=== PATIENT | male | born 1965 | race Caucasian/White ===

== ENCOUNTER 2018-12-11 12:18 | Inpatient (IN) | payer MEDICARE, OTHER ==
[2018-12-11 13:04] LABS: ABNORMAL IP MESSAGE 1; HEMATOCRIT 24.9 % (42.0-52.0); HEMOGLOBIN 8.2 g/dl (14.0-18.0); MEAN CORPUSCULAR HEMOGLOBIN 30.9 pg (29.0-33.0); MEAN CORPUSCULAR HGB CONC 32.9 g/dl (32.0-37.0); MEAN PLATELET VOLUME 9.8 fl (7.4-10.4); PLATELET COUNT 206 10^3/UL (140-415); POSITIVE DIFF @See below; RED BLOOD COUNT 2.65 10^6/ul (4.70-6.10); RED CELL DISTRIBUTION WIDTH 19.3 % (11.5-14.5)
[2018-12-11 13:04] LABS: WHITE BLOOD COUNT 1.7 10^3/ul (4.8-10.8)
[2018-12-11] MEDS: OXYCODONE/ACETAMINOPHEN (5/325) TAB PO (13:04)
[2018-12-11] MEDS: IBUPROFEN 600 MG TAB PO (13:04)
[2018-12-11] MEDS: ONDANSETRON 4 MG INJ IV (13:04)
[2018-12-11 13:05] LABS: ADD MAN DIFF? YES
[2018-12-11] MEDS: SODIUM CHLORIDE 0.9% 1L BAG IV* (13:05)
[2018-12-11] MEDS: CEFTRIAXONE 1 GM/50 ML (PMX) 50 ML IVPB (13:05)
[2018-12-11 13:20] LABS: ALANINE AMINOTRANSFERASE 18 IU/L (13-69); ALBUMIN 1.4 g/dl (3.3-4.9); ALBUMIN/GLOBULIN RATIO 0.51; ALKALINE PHOSPHATASE 83 IU/L (42-121); ANION GAP 15 (5-13); ASPARTATE AMINO TRANSFERASE 33 IU/L (15-46); BILIRUBIN,INDIRECT 0.5 mg/dl (0-1.1); BILIRUBIN,TOTAL 0.5 mg/dl (0.2-1.3); BLOOD UREA NITROGEN 9 mg/dl (7-20); CALCIUM 7.2 mg/dl (8.4-10.2); CARBON DIOXIDE 18 mmol/L (21-31); CHLORIDE 98 mmol/L (97-110); CREATININE 1.46 mg/dl (0.61-1.24); Estimated GFR 50 mL/min (>60); GLUCOSE 79 mg/dl (70-220); POTASSIUM 4.3 mmol/L (3.5-5.1); SODIUM 131 mmol/L (135-144); TOTAL PROTEIN 4.1 g/dl (6.1-8.1)
[2018-12-11 13:23] LABS: PROTIME 28.7 Sec (11.9-14.9); PT RATIO 2.2
[2018-12-11 13:24] LABS: PARTIAL THROMBOPLASTIN TIME 49.2 Sec (23.0-35.0)
[2018-12-11 13:32] LABS: LIPASE < 10 U/L (23-300); TROPONIN-I < 0.012 ng/ml (0.000-0.120)
[2018-12-11 13:42] LABS: ANISOCYTOSIS 2+ (0-0); BAND NEUTROPHILS #M 0.8 10^3/ul (0.0-0.6); BAND NEUTROPHILS % (M) 48 % (0-4); BURR CELLS 2+ (0-0); ERYTHROBLAST% (NRBC) (M) 1 % (0-0); GIANT THROMBO% (M) 5 % (0-0); HYPOCHROMASIA 1+ (0-0); LYMPHOCYTES % (M) 4 % (15-51); METAMYELOCYTES #M 0.2 10^3/ul (0.0-0.0); METAMYELOCYTES %M 12 % (0-0); MONOCYTES % (M) 3 % (0-11); MYELOCYTES #M 0.1 10^3/ul (0.0-0.0); MYELOCYTES % (M) 7 % (0-0); PLATELET ESTIMATE NORMAL; POIKILOCYTOSIS 2+ (0-0); POLYCHROMASIA 1+ (0-0); RBC MORPHOLOGY COMMENT @See below; REACTIVE LYMPHOCYTES% (M) 2 % (0-0); SEG NEUT #M 0.4 10^3/ul (1.6-7.5); SEGMENTED NEUTROPHILS (M) % 25 % (39-77); SMUDGE%M 9 % (0-0); TARGET CELLS 1+ (0-0); WBC MORPHOLOGY COMMENT @See below
[2018-12-11] MEDS: METOCLOPRAMIDE 10 MG INJ IV (14:01)
[2018-12-11] MEDS: NORepinephrine 8MG/250 ML (PMX 250 ML IV (14:32)
[2018-12-11] MEDS: SOD CHLORIDE 0.9% 1,000 ML IV ×2 (14:57→18:41)
[2018-12-11 15:27] LABS: ADD UMIC YES; UR ASCORBIC ACID NEGATIVE (NEGATIVE); UR BACTERIA FEW /HPF (NONE SEEN); UR BILIRUBIN (Dip) 1+ mg/dL (NEGATIVE); UR BLOOD (Dip) NEGATIVE (NEGATIVE); UR CLARITY CLOUDY (CLEAR); UR COLOR AMBER (YELLOW); UR GLUCOSE (Dip) NEGATIVE (NEGATIVE); UR HYALINE CAST FEW /HPF (NONE SEEN); UR KETONES (Dip) TRACE mg/dL (NEGATIVE); UR LEUKOCYTE ESTERASE (Dip) NEGATIVE Leu/ul (NEGATIVE); UR MUCUS FEW /HPF (NONE SEEN); UR NITRITE (Dip) NEGATIVE (NEGATIVE); UR RBC 5 /HPF (0-5); UR SPECIFIC GRAVITY (Dip) 1.019 (1.003-1.030); UR TOTAL PROTEIN (Dip) 2+ mg/dl (NEGATIVE); UR UROBILINOGEN (Dip) 2+ mg/dL (NEGATIVE); UR WBC 5 /HPF (0-5)
[2018-12-11] MEDS ORDERED: DOCUSATE SODIUM 100 MG CAP PO (16:00)
[2018-12-11] MEDS ORDERED: MAGNESIUM HYDROXIDE 30ML CUP PO (16:00)
[2018-12-11] MEDS ORDERED: ACETAMINOPHEN 325 MG TAB PO (16:00)
[2018-12-11] MEDS ORDERED: NACL 0.9% 3 ML SYG IV (16:00)
[2018-12-11] MEDS ORDERED: LORAZEPAM 2 MG INJ IV (16:00)
[2018-12-11] MEDS ORDERED: NITROGLYCERIN (SL) 0.4 MG TAB SL (16:00)
[2018-12-11] MEDS ORDERED: hydrALAzine 20 MG INJ IV (16:00)
[2018-12-11] MEDS ORDERED: VANCOMYCIN IV PER PHARMACY XX (16:00)
[2018-12-11] MEDS ORDERED: HYDROCODONE/APAP (5/325) TAB PO (16:00)
[2018-12-11 16:30] LABS: PLATELET COUNT 165 10^3/UL (140-415)
[2018-12-11 16:45] LABS: HEMOGLOBIN A1C 5.2 % (0-5.9)
[2018-12-11 16:52] LABS: INR 3.66; PROTIME 36.4 Sec (11.9-14.9); PT RATIO 2.8
[2018-12-11 16:54] LABS: PARTIAL THROMBOPLASTIN TIME 63.9 Sec (23.0-35.0); THROMBIN TIME 20.6 SEC (13.8-19.1)
[2018-12-11 16:59] LABS: D-DIMER 2498.97 ng/ml (<460)
[2018-12-11 17:04] LABS: FREE T4 (FREE THYROXINE) 1.32 ng/dl (0.64-1.79)
[2018-12-11 17:11] LABS: LACTIC ACID 11.4 mmol/L (0.5-2.0)
[2018-12-11] MEDS: ALBUMIN HUMAN 25% 100 ML IV (17:23)
[2018-12-11] MEDS: NORepinephrine 32 MG in DEXTROSE 5% 218 ML IV (17:24)
[2018-12-11 18:18] LABS: FIBRIN SPLIT PRODUCT >10 and <40 ug/ml (<10)
[2018-12-11] MEDS: PHENYLephrine 80 MG in DEXTROSE 5% 242 ML IV (19:29)
[2018-12-11] MEDS: SOD CHLORIDE 0.9% 250 ML IV* (19:30)
[2018-12-11 20:14] LABS: SODIUM,URINE RANDOM < 13 mmol/L (30-90)
[2018-12-11 20:19] LABS: CREATININE,URINE RANDOM 461.11 mg/dl (20-370)
[2018-12-11] MEDS: FAMOTIDINE 20 MG INJ IV (21:43)
[2018-12-11] MEDS: VANCOMYCIN HCL 1.5 GM in SOD CHLORIDE 0.9% 250 ML IVPB (21:58)
[2018-12-11] MEDS: morphine 4 MG/ML VIAL IV (22:08)
[2018-12-11] MEDS: SOD CHLORIDE 0.9% 250 ML IV (22:09)
[2018-12-11 22:24] LABS: LACTIC ACID 12.3 mmol/L (0.5-2.0)
[2018-12-11] MEDS: CEFEPIME 2GM/50 ML (PMX) 50 ML IVPB (23:25)
[2018-12-12 00:08] LABS: LACTIC ACID 13.4 mmol/L (0.5-2.0)
[2018-12-12] MEDS: ALBUMIN HUMAN 25% 100 ML IV ×3 (00:09→12:18)
[2018-12-12] MEDS: PHENYLephrine 80 MG in DEXTROSE 5% 242 ML IV ×5 (02:30→21:51)
[2018-12-12] MEDS: SOD CHLORIDE 0.9% 250 ML IV (04:17)
[2018-12-12] MEDS: SOD CHLORIDE 0.9% 1,000 ML IV (05:25)
[2018-12-12 05:33] LABS: WHITE BLOOD COUNT 2.3 10^3/ul (4.8-10.8)
[2018-12-12 05:33] LABS: RED BLOOD COUNT 2.11 10^6/ul (4.70-6.10)
[2018-12-12 05:34] LABS: ABNORMAL IP MESSAGE 1; HEMATOCRIT 20.4 % (42.0-52.0); MEAN CORPUSCULAR HEMOGLOBIN 31.3 pg (29.0-33.0); MEAN CORPUSCULAR HGB CONC 32.4 g/dl (32.0-37.0); MEAN CORPUSCULAR VOLUME 96.7 fl (82.0-101.0); MEAN PLATELET VOLUME 10.5 fl (7.4-10.4); PLATELET COUNT 117 10^3/UL (140-415); POSITIVE DIFF @See below; RED CELL DISTRIBUTION WIDTH 20.3 % (11.5-14.5)
[2018-12-12 05:48] LABS: HEMOGLOBIN A1C 5.1 % (0-5.9)
[2018-12-12 05:57] LABS: INR 2.45; PROTIME 26.6 Sec (11.9-14.9); PT RATIO 2.1
[2018-12-12 06:04] LABS: ADD MAN DIFF? YES; HEMOGLOBIN 6.6 g/dl (14.0-18.0)
[2018-12-12 06:08] LABS: HDL CHOLESTEROL 10 mg/dl (28-71); TRIGLYCERIDES 80 mg/dl (0-149)
[2018-12-12 06:13] LABS: ALANINE AMINOTRANSFERASE 40 IU/L (13-69); ALKALINE PHOSPHATASE 52 IU/L (42-121); ANION GAP 15 (5-13); ASPARTATE AMINO TRANSFERASE 94 IU/L (15-46); BILIRUBIN,INDIRECT 0.5 mg/dl (0-1.1); BILIRUBIN,TOTAL 1.1 mg/dl (0.2-1.3); BLOOD UREA NITROGEN 8 mg/dl (7-20); CALCIUM 6.7 mg/dl (8.4-10.2); CARBON DIOXIDE 13 mmol/L (21-31); CHLORIDE 109 mmol/L (97-110); Estimated GFR 35 mL/min (>60); POTASSIUM 3.8 mmol/L (3.5-5.1); SODIUM 137 mmol/L (135-144); TOTAL PROTEIN 4.2 g/dl (6.1-8.1)
[2018-12-12 06:57] LABS: CHOLESTEROL < 50 mg/dl (100-200)
[2018-12-12 07:04] LABS: GLUCOSE 29 mg/dl (70-220)
[2018-12-12 07:48] LABS: LACTIC ACID 13.3 mmol/L (0.5-2.0)
[2018-12-12 07:52] LABS: MAGNESIUM 1.6 mg/dl (1.7-2.5)
[2018-12-12 07:52] LABS: PHOSPHORUS 5.7 mg/dl (2.5-4.9)
[2018-12-12 07:57] LABS: ANISOCYTOSIS 3+ (0-0); BAND NEUTROPHILS #M 1.2 10^3/ul (0.0-0.6); BAND NEUTROPHILS % (M) 53 % (0-4); BASOPHILS % (M) 1 % (0-2); BURR CELLS 3+ (0-0); EOSINOPHILS % (M) 2 % (0-7); GIANT THROMBO% (M) 2 % (0-0); HYPOCHROMASIA 1+ (0-0); LYMPHOCYTES % (M) 3 % (15-51); METAMYELOCYTES #M 0.1 10^3/ul (0.0-0.0); METAMYELOCYTES %M 6 % (0-0); MONOCYTES % (M) 1 % (0-11); MYELOCYTES #M 0.2 10^3/ul (0.0-0.0); MYELOCYTES % (M) 9 % (0-0); PLATELET ESTIMATE DECREASED; POIKILOCYTOSIS 3+ (0-0); POLYCHROMASIA 3+ (0-0); SEG NEUT #M 0.6 10^3/ul (1.6-7.5); SEGMENTED NEUTROPHILS (M) % 25 % (39-77); SMUDGE%M 2 % (0-0); TARGET CELLS 1+ (0-0)
[2018-12-12] MEDS ORDERED: VANCOMYCIN 750 MG (PMX) 250 ML IVPB (08:00)
[2018-12-12] MEDS ORDERED: DEXTROSE 50% 50 ML SYRINGE (08:18)
[2018-12-12] MEDS: SODIUM BICARBONATE (IV ADD) 100 MEQ in DEXTROSE 5%-0.45% NACL 1,000 ML IV (08:34)
[2018-12-12 08:43] LABS: WHITE BLOOD COUNT 2.9 10^3/ul (4.8-10.8)
[2018-12-12 08:43] LABS: ABNORMAL IP MESSAGE 1; HEMATOCRIT 20.1 % (42.0-52.0); MEAN CORPUSCULAR HEMOGLOBIN 30.7 pg (29.0-33.0); MEAN CORPUSCULAR HGB CONC 30.8 g/dl (32.0-37.0); MEAN CORPUSCULAR VOLUME 99.5 fl (82.0-101.0); MEAN PLATELET VOLUME 10.6 fl (7.4-10.4); PLATELET COUNT 95 10^3/UL (140-415); POSITIVE DIFF @See below; RED BLOOD COUNT 2.02 10^6/ul (4.70-6.10); RED CELL DISTRIBUTION WIDTH 20.4 % (11.5-14.5)
[2018-12-12] MEDS: DEXTROSE 50% 50 ML SYRINGE IV ×3 (08:47→14:22)
[2018-12-12] MEDS: CEFEPIME 2GM/50 ML (PMX) 50 ML IVPB (08:47)
[2018-12-12] MEDS: FAMOTIDINE 20 MG INJ IV (08:47)
[2018-12-12 08:58] LABS: ADD MAN DIFF? YES; HEMOGLOBIN 6.2 g/dl (14.0-18.0)
[2018-12-12] MEDS: NORepinephrine 32 MG in DEXTROSE 5% 218 ML IV ×2 (09:09→23:27)
[2018-12-12] MEDS: ALBUTEROL/IPRATROPIUM (NEB) 3 ML AMP HHN (09:18)
[2018-12-12 09:19] LABS: GLUCOSE 32 mg/dl (70-220)
[2018-12-12 09:21] LABS: LACTIC ACID 13.1 mmol/L (0.5-2.0)
[2018-12-12] MEDS: ONDANSETRON 4 MG INJ IV (09:29)
[2018-12-12 09:39] LABS: ANISOCYTOSIS 3+ (0-0); BAND NEUTROPHILS #M 1.3 10^3/ul (0.0-0.6); BAND NEUTROPHILS % (M) 45 % (0-4); BURR CELLS 3+ (0-0); EOSINOPHILS % (M) 1 % (0-7); ERYTHROBLAST% (NRBC) (M) 2 % (0-0); GIANT THROMBO% (M) 2 % (0-0); HYPOCHROMASIA 1+ (0-0); LYMPHOCYTES #M 0.3 10^3/ul (0.8-2.9); LYMPHOCYTES % (M) 12 % (15-51); METAMYELOCYTES #M 0.2 10^3/ul (0.0-0.0); METAMYELOCYTES %M 7 % (0-0); MONOCYTE #M 0.4 10^3/ul (0.3-0.9); MONOCYTES % (M) 14 % (0-11); MYELOCYTES #M 0.2 10^3/ul (0.0-0.0); MYELOCYTES % (M) 9 % (0-0); OVALOCYTES 1+ (0-0); PLATELET ESTIMATE DECREASED; POIKILOCYTOSIS 3+ (0-0); POLYCHROMASIA 1+ (0-0); SEG NEUT #M 0.4 10^3/ul (1.6-7.5); SEGMENTED NEUTROPHILS (M) % 12 % (39-77); SMUDGE%M 9 % (0-0); TARGET CELLS 1+ (0-0)
[2018-12-12] MEDS ORDERED: FENTAnyl 50 MCG/ML VIAL (09:59)
[2018-12-12 10:14] LABS: IMMEDIATE SPIN CROSSMATCH 1
[2018-12-12] MEDS: VASOPRESSIN 60 UNIT in DEXTROSE 5% 57 ML IV (11:11)
[2018-12-12] MEDS: MIDAZOLAM (DRIP) 50 mg/50 mL 50 ML IV (11:21)
[2018-12-12] MEDS: SODIUM BICARBONATE (IV ADD) 150 MEQ in DEXTROSE 5% 1,000 ML IV ×2 (11:25→19:25)
[2018-12-12] MEDS: FENTAnyl (DRIP) 1000 mcg/100mL 100 ML IV (11:38)
[2018-12-12] MEDS ORDERED: ALBUMIN HUMAN 25% 100 ML (11:39)
[2018-12-12] MEDS: FENTAnyl 50 MCG/ML VIAL IV (11:43)
[2018-12-12 11:56] LABS: AADO2 Arterial 297.7 mmHg (7.0-24.0); Allen Test ACCEPTAB; Arterial Base Excess -18.6 mmol/L (-3.0-3); Arterial Blood Gas Oxygen Sat 98.4 mmHG (95.0-98.0); Arterial COHb 0.3 % (0.0-3.0); Arterial Fraction of Oxyhgb 97.9 % (93.0-99.0); Arterial HCO3 8.7 mmol/L (22.0-26.0); Arterial MetHb 0.2 % (0.0-1.5); Arterial pCO2 25.7 mmhg (35-45); MODE VENT - AC; Site Left Radial
[2018-12-12 12:01] LABS: LACTIC ACID 14.7 mmol/L (0.5-2.0)
[2018-12-12] MEDS: MEROPENEM 1 GM/50ML(PMX) 50 ML IVPB ×2 (12:16→20:52)
[2018-12-12 12:32] LABS: ALANINE AMINOTRANSFERASE 44 IU/L (13-69); ALBUMIN 2.6 g/dl (3.3-4.9); ALBUMIN/GLOBULIN RATIO 1.13; ALKALINE PHOSPHATASE 47 IU/L (42-121); ANION GAP 20 (5-13); ASPARTATE AMINO TRANSFERASE 110 IU/L (15-46); BILIRUBIN,INDIRECT 0.6 mg/dl (0-1.1); BILIRUBIN,TOTAL 1.3 mg/dl (0.2-1.3); BLOOD UREA NITROGEN 8 mg/dl (7-20); CALCIUM 6.7 mg/dl (8.4-10.2); CHLORIDE 107 mmol/L (97-110); SODIUM 137 mmol/L (135-144); TOTAL PROTEIN 4.9 g/dl (6.1-8.1)
[2018-12-12 12:39] LABS: Estimated GFR 37 mL/min (>60)
[2018-12-12 12:52] LABS: CARBON DIOXIDE 10 mmol/L (21-31)
[2018-12-12 12:53] LABS: CREATININE 1.89 mg/dl (0.61-1.24)
[2018-12-12 12:56] LABS: GLUCOSE 30 mg/dl (70-220)
[2018-12-12] MEDS: ASCORBIC ACID IVPB ×3 (13:02→23:27)
[2018-12-12] MEDS: DEXTROSE 5% IVPB ×3 (13:02→23:27)
[2018-12-12] MEDS: FILGRASTIM 480 MCG INJ IVPB (13:03)
[2018-12-12 13:41] LABS: HEMATOCRIT 20.1 % (42.0-52.0)
[2018-12-12 13:53] LABS: HEMOGLOBIN 6.2 g/dl (14.0-18.0)
[2018-12-12 14:17] LABS: IMMEDIATE SPIN CROSSMATCH 1 5
[2018-12-12] MEDS: SOD CHLORIDE 0.9% IV (14:18)
[2018-12-12] MEDS: EPINEPHRINE IV (14:18)
[2018-12-12] MEDS: NA BICARBONATE 8.4% 50 ML SYG IV (14:20)
[2018-12-12] MEDS: DEXTROSE 10% 1,000 ML IV (14:22)
[2018-12-12] MEDS: HYDROCORTISONE 100 MG INJ IV ×2 (14:46→21:45)
[2018-12-12] MEDS: SOD CHLORIDE 0.9% 250 ML IV* (14:46)
[2018-12-12] MEDS: THIAMINE 100 MG TAB NGT ×2 (17:30→20:47)
[2018-12-12 18:42] LABS: HEMATOCRIT 30.4 % (42.0-52.0); HEMOGLOBIN 9.3 g/dl (14.0-18.0)
[2018-12-12 21:19] LABS: IMMEDIATE SPIN CROSSMATCH 1
[2018-12-12] MEDS: DOPamine 800 MG in DEXTROSE 5% 230 ML IV (21:30)
[2018-12-12] MEDS: VANCOMYCIN 1 GM 250 ML IVPB (21:45)
[2018-12-13] MEDS: MIDAZOLAM (DRIP) 50 mg/50 mL 50 ML IV (00:39)
== END 2018-12-13 02:48 | disposition expired | DRG 871 ==
LOC: E/R 12:18 → ICU 14:14
PROVIDERS: Hospitalist
PROC: 02HV33Z Insertion of Infusion Device into Superior Vena Cava, Percutaneous Approach (ICD-10-PCS; 2018-12-11)
PROC: B546ZZA Ultrasonography of Right Subclavian Vein, Guidance (ICD-10-PCS; 2018-12-11)
PROC: 5A1935Z Respiratory Ventilation, Less than 24 Consecutive Hours (ICD-10-PCS; principal; 2018-12-12)
PROC: 0BH17EZ Insertion of Endotracheal Airway into Trachea, Via Natural or Artificial Opening (ICD-10-PCS; 2018-12-12)
PROC: 30233K1 Transfusion of Nonautologous Frozen Plasma into Peripheral Vein, Percutaneous Approach (ICD-10-PCS; 2018-12-12)
PROC: 30233N1 Transfusion of Nonautologous Red Blood Cells into Peripheral Vein, Percutaneous Approach (ICD-10-PCS; 2018-12-12)
PROC: 30233M1 Transfusion of Nonautologous Plasma Cryoprecipitate into Peripheral Vein, Percutaneous Approach (ICD-10-PCS; 2018-12-12)
PROC: 4A033R1 Measurement of Arterial Saturation, Peripheral, Percutaneous Approach (ICD-10-PCS; 2018-12-12)
DX: A41.51 Sepsis due to Escherichia coli [E. coli] (principal); R65.21 Severe sepsis with septic shock; E43 Unspecified severe protein-calorie malnutrition; D65 Disseminated intravascular coagulation [defibrination syndrome]; J96.01 Acute respiratory failure with hypoxia; J18.9 Pneumonia, unspecified organism; N17.0 Acute kidney failure with tubular necrosis; E87.1 Hypo-osmolality and hyponatremia; E87.2 Acidosis; D62 Acute posthemorrhagic anemia; R18.8 Other ascites; I46.9 Cardiac arrest, cause unspecified; I10 Essential (primary) hypertension; D70.9 Neutropenia, unspecified; E16.2 Hypoglycemia, unspecified; R19.7 Diarrhea, unspecified; D69.59 Other secondary thrombocytopenia; K76.0 Fatty (change of) liver, not elsewhere classified; Z92.21 Personal history of antineoplastic chemotherapy; Z92.3 Personal history of irradiation; Z90.3 Acquired absence of stomach [part of]; Z85.028 Personal history of other malignant neoplasm of stomach
CPT/HCPCS: 31500; 36415; 36430; 36600; 71045; 73510; 74176; 80053; 80061; 81001; 81003; 82803; 82947; 82962; 83036; 83605; 83690; 83735; 84100; 84155; 84300; 84439; 84443; 84484; 85014; 85018; 85025; 85049; 85362; 85378; 85384; 85610; 85670; 85730; 86850; 86900; 86901; 86920; 87040; 87075; 87081; 87086; 93005; 94002; 94003; 94640; 94664; 94770; 96365; 96375; 99291-25